=== PATIENT | female | born 1930 ===

== ENCOUNTER 2018-12-11 10:08 | Outpatient (CLI) | payer OTHER ==
[~2018-12-11] VITALS: Ht 157.5 cm; Wt 46.7 kg
[2018-12-11] MEDS ORDERED: LIPO-FLAVONOID1 EACH PO (11:28)
== END 2018-12-11 10:15 | disposition home or self-care (01) ==
LOC: OFIC 805 10:08
DX: H81.90 Unspecified disorder of vestibular function, unspecified ear (principal); H91.8X3 Other specified hearing loss, bilateral; H61.22 Impacted cerumen, left ear; J31.0 Chronic rhinitis

== ENCOUNTER 2019-01-01 08:47 | Outpatient (CLI) | payer OTHER ==
[~2019-01-01] VITALS: Ht 152.4 cm; Wt 46.7 kg
[~2019-01-01 08:47] MED LIST: LIPO-FLAVONOID1 EACH PO
== END 2019-01-01 09:00 | disposition home or self-care (01) ==
LOC: OFIC 805 08:47
DX: H81.49 Vertigo of central origin, unspecified ear (principal); H91.8X3 Other specified hearing loss, bilateral; J31.0 Chronic rhinitis; H61.21 Impacted cerumen, right ear

== ENCOUNTER 2019-07-02 10:51 | Outpatient (CLI) | payer OTHER ==
[~2019-07-02] VITALS: Ht 152.4 cm; Wt 47.6 kg
== END 2019-07-02 13:30 | disposition home or self-care (01) ==
LOC: OFIC 805 10:51
DX: H91.8X3 Other specified hearing loss, bilateral (principal); R42 Dizziness and giddiness; J31.0 Chronic rhinitis